=== PATIENT | male | born 1950 | race Caucasian/White ===

== ENCOUNTER → 2023-08-19 07:40 | Outpatient (REF) | payer MEDICARE, OTHER, SELFPAY | LOC: RAD 07:40 | PROVIDERS: ATTENDING PHYSICIAN Surgery Vascular Surgery | DX: I73.9 Peripheral vascular disease, unspecified (principal) | CPT/HCPCS: 93922; 93925; 93978 ==

== ENCOUNTER → 2024-08-13 13:56 | Outpatient (REF) | payer MEDICARE, OTHER, SELFPAY | LOC: HWRAD 13:56 | PROVIDERS: ATTENDING PHYSICIAN Internal Medicine Critical Care Medicine; FAMILY PHYSICIAN Family Medicine | DX: R91.8 Other nonspecific abnormal finding of lung field (principal) | CPT/HCPCS: 71250 ==

== ENCOUNTER 2024-08-16 06:14 | Day surgery (SDC) | payer MEDICARE, OTHER, SELFPAY ==
[2024-08-13 12:45] VITALS: BMI 23.9
[2024-08-13 13:33] LABS: Hematocrit 32.6 % (39.0-52.0); Hemoglobin 10.7 g/dL (13.0-18.0); Mean Corp Hgb Conc. 32.8 g/dL (33.0-37.0); Mean Corpuscular Hgb 29.8 pg (27.0-31.0); Mean Corpuscular Volume 90.8 fL (80.0-94.0); Mean Platelet Volume 9.9 fL (7.4-10.4); Platelet Count 296 10^3/uL (130-400); Red Blood Cell Count 3.59 10^6/uL (4.70-6.10); White Blood Cell Count 5.8 10^3/uL (4.8-10.8)
[2024-08-13 13:49] LABS: INR 1.01; PT 13.6 Sec (11.4-14.6)
[2024-08-13 15:08] LABS: Blood Urea Nitrogen 14 mg/dl (9-20); Calcium 8.8 mg/dl (8.4-10.2); Carbon Dioxide 27 mmol/L (22-30); Chloride 101 mmol/L (98-107); Estimated Creatinine Clearance 111 ml/min; Glucose 105 mg/dl (70-99); Potassium 4.4 mmol/L (3.5-5.1); Sodium 133 mmol/L (135-145); eGFR > 60.00
[2024-08-16] VITALS (10 sets, daily range): BP systolic 117–137; BP diastolic 58–116; BMI 23.9
== END 2024-08-16 10:36 | disposition home or self-care (01) ==
LOC: SDS 06:14
PROVIDERS: ATTENDING PHYSICIAN Internal Medicine Critical Care Medicine; FAMILY PHYSICIAN Family Medicine
DX: R91.8 Other nonspecific abnormal finding of lung field (principal); J98.4 Other disorders of lung; J98.09 Other diseases of bronchus, not elsewhere classified
CPT/HCPCS: 31629; 31628; 31624; 31623; 31627; 31654; 88173; 88305; 36415; 71045; 76000; 80048; 85027; 85610; 85730; 87015; 87070; 87102; 87116; 87205; 88112; 88333; 88334; 88341; 88342; 94640; C1887

== ENCOUNTER → 2024-08-23 07:31 | Outpatient (REF) | payer MEDICARE, OTHER, SELFPAY | LOC: RAD 07:31 | PROVIDERS: ATTENDING PHYSICIAN Surgery Vascular Surgery; FAMILY PHYSICIAN Family Medicine | DX: I73.9 Peripheral vascular disease, unspecified (principal) | CPT/HCPCS: 93922; 93978 ==